=== PATIENT | female | born 2000 | race Caucasian/White ===

== ENCOUNTER 2024-03-03 10:51 | Emergency (ER) | payer OTHER ==
[~2024-03-03] VITALS: Ht 170.2 cm; Wt 109.0 kg
[2024-03-03 10:53] VITALS: O2SAT 98
[2024-03-03 11:12] VITALS: BP 135/81; PULSE 80; RESP 16; TEMP 98.4; O2SAT 98
[2024-03-03 12:23] LABS: CHLORIDE 108 mEq/L (98-107); POTASSIUM 3.9 mEq/L (3.5-5.1); SODIUM 138 mEq/L (136-145)
[2024-03-03 12:24] LABS: CARBON DIOXIDE 25 mEq/L (21-32)
[2024-03-03 12:26] LABS: BASOPHILS % 0.2 % (0.0-2.0); EOSINOPHILS % 0.1 % (0.0-5.0); HEMATOCRIT. 34.6 % (36.0-48.0); HEMOGLOBIN. 11.3 g/dL (12.0-16.0); LYMPHOCYTES % 25.9 % (20.0-50.0); MEAN CORPUSCULAR HEMOGLOBIN 26.2 pg (28.0-32.0); MEAN CORPUSCULAR HGB CONC 32.7 g/dL (31.0-37.0); MONOCYTES % 6.4 % (2.0-8.0); NEUTROPHILS % 67.4 % (40.0-76.0); PLATELET 276 x1000/uL (130-400); RED BLOOD CELL COUNT 4.32 mill/uL (4.2-5.4); RED CELL DISTRIBUTION WIDTH 19.1 % (11.6-14.6); WHITE BLOOD COUNT 6.9 x1000/uL (4.5-11.0)
[2024-03-03 12:28] LABS: HCG SCREEN NEGATIVE
[2024-03-03 12:29] LABS: CREATININE 0.7 mg/dL (0.6-1.0); GLUCOSE 94 mg/dL (70-105); UREA NITROGEN BLOOD 7 mg/dL (9-23)
[2024-03-03 12:31] LABS: ALANINE AMINOTRANSFERASE 8 IU/L (10-49); ALBUMIN 4.6 g/dL (3.2-4.8); ASPARTATE AMINOTRANSFERASE 12 IU/L (<34); BILIRUBIN TOTAL 0.4 mg/dL (0.1-1.0); PROTEIN TOTAL 7.4 g/dL (6.0-8.3)
== END 2024-03-03 13:26 | disposition left against medical advice (07) ==
LOC: ER 10:51
DX: R10.11 Right upper quadrant pain (principal); R07.81 Pleurodynia; E03.9 Hypothyroidism, unspecified
CPT/HCPCS: 36415; 71045; 80053; 84703; 85025; 99284

== ENCOUNTER 2024-07-09 11:47 | Emergency (ER) | payer OTHER ==
[~2024-07-09] VITALS: Ht 170.2 cm; Wt 109.0 kg
[2024-07-09 11:49] VITALS: O2SAT 99
[2024-07-09 11:57] VITALS: BP 155/74; PULSE 91; RESP 18; TEMP 98.3; O2SAT 98
[2024-07-09] MEDS ORDERED: OXYM30SP26 BOTHNSTRLS (16:24)
== END 2024-07-09 17:01 | disposition home or self-care (01) ==
LOC: ER 11:47
DX: S02.2XXA Fracture of nasal bones, initial encounter for closed fracture (principal); E03.9 Hypothyroidism, unspecified; W22.09XA Striking against other stationary object, initial encounter; Y93.89 Activity, other specified; Y92.89 Other specified places as the place of occurrence of the external cause; Y99.8 Other external cause status
CPT/HCPCS: 99282